=== PATIENT | female | born 1950 | race Caucasian/White ===

== ENCOUNTER 2023-02-10 10:20 | Day surgery (SDC) | payer OTHER ==
[2023-02-04 09:06] LABS: Absolute Lymphocytes (CBC) 1.1 K/uL (0.7-4.9); Hematocrit 39.2 % (36.0-45.0); Lymphocytes % 23.1 % (15.3-44.8); Platelets 203 thou/uL (152-406)
[2023-02-04 09:10] LABS: Protime INR 1.02
--- NOTE | 2023-02-04 09:14 | RAD REPORT ---
EXAM DESCRIPTION: RAD - Chest Pa And Lat (2 Views) - 02/04/2023 9:09 am CLINICAL HISTORY: pre op pending heart catheterization Chest pain. COMPARISON: No comparisons TECHNIQUE: PA and lateral views of the chest were obtained. FINDINGS: The lungs are hyperexpanded compatible with COPD. The heart is upper limit of normal in si ze. No fracture or aggressive bony process. Postsurgical changes left axilla and left breast. IMPRESSION: COPD without acute process identified. The USPSTF recommends annual screening for lung cancer with low-dose CT (LDCT) in adults aged 50 to 8 0 years who have a 20 pack-year smoking history and currently smoke or have quit within the past 15 y ears.
[2023-02-04 09:16] LABS: Potassium 3.9 mEq/L (3.5-5.1)
--- NOTE | 2023-02-05 15:48 | EKG ---
Test Date: 2023-02-04 Test Time: 08:35:57 Cigarette Maker: ELISE MEASUREMENT RESULTS: Intervals: Rate: 73 ND: 190 QRSD: 96 QT: 388 QTc: 427 [place]: P: -17 ND: 190 QRS: -27 T: 22 INTERPRETIVE STATEMENTS: Normal sinus rhythm Voltage criteria for left ventricular hypertrophy Abnormal ECG Compared to ECG 01/16/2023 08:12:47 Left ventricular hypertrophy now present Left-axis deviation no longer present T-wave abnormality no longer present Electronically Signed On 02-05-23 15:43:41 CDT by Armen Roth
[2023-02-10] MEDS ORDERED: NA CHLORIDE 0.9% 500 ML ONE (11:53)
[2023-02-10 12:15] VITALS: TEMP 98; O2SAT 100
[2023-02-10] MEDS ORDERED: HEPA 1000U/500MLS 2,000 UNIT/1,000 ML BAG IV ONE (12:15)
[2023-02-10] MEDS ORDERED: LIDOCAINE 1% 20 ML MDV ONE (12:15)
[2023-02-10] MEDS ORDERED: MIDAZOLAM HCL 2 MG/2 ML INJ ONE (12:16)
[2023-02-10] MEDS ORDERED: FENTANYL CITR 100 MCG/2 ML ONE (12:16)
[2023-02-10] MEDS ORDERED: HEPARIN 5000 UNIT/ML 1 ML VIAL ONE (12:16)
[2023-02-10] MEDS ORDERED: VERAPAMIL HCL 10 MG/4 ML VIAL IV ONE (12:17)
[2023-02-10] MEDS ORDERED: TICAGRELOR 90 MG TABLET PO ONE (12:17)
[2023-02-10] MEDS ORDERED: ATROPINE SULF 1 MG/10 ML SYR IV ONE (12:17)
[2023-02-10] MEDS ORDERED: HEPARIN 10,000 UNIT/10 ML VIAL IV ONE (12:17)
[2023-02-10] MEDS ORDERED: ASPIRIN 325 MG TAB ONE (12:17)
[2023-02-10] MEDS ORDERED: CLOPIDOGREL 75 MG TABLET ONE (12:17)
[2023-02-10 15:03] VITALS: BP 145/63
--- NOTE | 2023-02-11 20:20 | OP ---
Date of Procedure: 02/10/2023 Surgeon: SEAN MENDES Procedures Performed: 1.Selective coronary angiogram. 2.Left heart catheterization. Indication: Unstable angina. Access: Right radial artery, 6-E[place]ian, closed with TR band. Complications: None. Bleeding: Less than 20 mL. Description Of Procedure: After risks, benefits, and alternatives were explained, the patient agreed to procedure and signed informed consent. The patient was brought into the cardiac catheterization laboratory, prepped and draped in the usual sterile fashion. Then, I accessed right radial artery us ing pediatric micropuncture kit, placed 6-[place]ian slender sheath, took 5-E[place]ian Marshall 4 catheter into the aortic root, engaged left main and right coronary artery, took standard views, and then the libby ter was pushed over the wire into the LV, measured LVEDP. Pullback then recorded and no significant gradient, then removed the catheter and the sheath, placed TR band with good hemostasis. Findings: 1.Left main large and normal. 2.LAD is normal. Normal diagonal branches. 3.Left circumflex is normal. 4.RCA is normal. 5.LVEDP is elevated at 20 mmHg. Conclusion: 1.Normal coronary arteries. 2.Elevated LVEDP. Recommendation: Medical management with diuretics. SR/MODL Voice ID: [id number] Report ID: [id number]
--- NOTE | 2023-02-11 21:02 | OP ---
Date of Procedure: 02/10/2023 Surgeon: SEAN MENDES Procedure Performed: Selective coronary angiogram. DICTATION ENDS HERE. /SHARRON Voice ID: [id number] Report ID: [id number]
== END 2023-02-10 15:10 | disposition home or self-care (01) ==
LOC: CCL 10:20
PROVIDERS: ATTEND Internal Medicine
DX: I35.0 Nonrheumatic aortic (valve) stenosis (principal); I71.20 Thoracic aortic aneurysm, without rupture, unspecified; I20.0 Unstable angina; I10 Essential (primary) hypertension; E78.5 Hyperlipidemia, unspecified; K21.9 Gastro-esophageal reflux disease without esophagitis; E03.9 Hypothyroidism, unspecified; F17.210 Nicotine dependence, cigarettes, uncomplicated; Z79.899 Other long term (current) drug therapy; Z85.3 Personal history of malignant neoplasm of breast
CPT/HCPCS: 93005; 85025; 80048; 36415; 85610; 85730; 71046; 93458; 76937; C1893; Q9966; J1644; J2001; J2250; J3010; J7040; J0461